=== PATIENT | female | born 1935 | race Caucasian/White ===

== ENCOUNTER 2023-02-11 20:07 | Emergency (ER) | payer OTHER, MEDICARE ==
[~2023-02-11] VITALS: Ht 160 cm; Wt 58.0 kg
--- OUTSIDE RECORDS SUMMARY | 2023-02-11 21:05 | XMS ---
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 Events currently on file CRITERIA MET - [facility] - 2 Visits in 30 Days - [facility] - 3 Facilities in 90 Days - [facility] CARE PROVIDERS KATARINA AVILA Plans Examiner: Foot \T\ Ankle Surgery Current PHONE: [phone] LIANA PEARL Internal Medicine Current PHONE: [phone] BHASKAR LIMON Nurse Practitioner: Family Current PHONE: [phone] PROMISE SMITH Internal Medicine: Cardiovascular Disease Current PHONE: [phone] ISH TINSLEY Nurse Practitioner: Family Current PHONE: Unknown RITU PEDRAZA Internal Medicine Current PHONE: [phone] TIMO AVILEZ Nurse Practitioner: Family Current PHONE: [phone] TALIA BAIRD Nurse Practitioner Kenneth SENAGH PHONE: [phone] CONRAD DOUGLAS Family Medicine Current PHONE: [phone] ANTHONY KUMAR Nurse Practitioner: Family Current PHONE: Unknown Eva has no Care Guidelines for this patient. Ravin VISIT COUNT (12 MO.) 1 Kamlesh Egan 2 [facility] 1 JOYCE Marie TOTAL 4 NOTE: Visits indicate total known visits. ED/UCC VISIT TRACKING (12 MO.) 02/11/2023 20:08 JOYCE Gill [place] TYPE: Emergency COMPLAINT: - FALL 02/03/2023 22:45 Kamlesh Chou OR TYPE: Emergency DIAGNOSES: - LV II TX Fall - TX 02/03/2023 15:00 [email or web address] [place] TYPE: Emergency DIAGNOSES: - Nondisplaced posterior arch fracture of first cervical vertebra, initial encounter for closed fracture - Other specified fracture of right pubis, initial encounter for closed fracture - Unspecified fracture of right acetabulum, initial encounter for closed fracture - GRN LVL FALL 04/24/2022 08:19 [email or web address] [place] TYPE: Emergency DIAGNOSES: - Drug induced constipation - CONSTIPATION AND VOMITING INPATIENT VISIT TRACKING (12 MO.) 02/03/2023 22:45 Kamlesh DURBIN TYPE: Trauma COMPLAINT: - LV II TX Fall DIAGNOSES: - LV II TX Fall [email or web address]
[2023-02-11] MEDS ORDERED: MACROBID 100 M100 MG PO (22:35)
[2023-02-11 23:48] VITALS: BP 141/90
== END 2023-02-12 00:07 | disposition home or self-care (01) ==
LOC: ED 20:07
DX: S01.81XA Laceration without foreign body of other part of head, initial encounter (principal); W06.XXXA Fall from bed, initial encounter; N39.0 Urinary tract infection, site not specified; Z20.822 Contact with and (suspected) exposure to COVID-19
CPT/HCPCS: 36415; 70450; 70486; 71260; 72125; 74177; 80053; 81001; 83605; 85025; 85610; 86850; 86900; 86901; 87502; A9270; C9803; G0480; J0696; J2270; J2405; J7121; Q9967; U0003

== ENCOUNTER 2023-02-22 21:03 | Emergency (ER) | payer OTHER, MEDICARE ==
[~2023-02-22] VITALS: Ht 160 cm; Wt 56.0 kg
[~2023-02-22 21:03] MED LIST: MACROBID 100 M100 MG PO
--- OUTSIDE RECORDS SUMMARY | 2023-02-22 21:06 | XMS ---
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 - 2 Visits in 30 Days - 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 \T\ Ankle Surgery Current PHONE: [phone] LIANA PEARL Internal Medicine Current PHONE: [phone] BHASKAR LIMON Nurse Practitioner: Family Current PHONE: [phone] PROMISE SMITH Internal Medicine: Cardiovascular Disease Current PHONE: [phone] ISH TINSLEY Nurse Practitioner: Family Current PHONE: Unknown RITU PEDRAZA Internal Medicine Current PHONE: [phone] TIMO AVILEZ Nurse Practitioner: Family Current PHONE: [phone] TALIA BAIRD Nurse Practitioner Kenneth SENAGH PHONE: [phone] CHANDRIKA [facility] Nursing [facility] Current PHONE: Unknown CONRAD DOUGLAS [facility] Current PHONE: [phone] ANTHONY KUMAR Nurse Practitioner: Family Current PHONE: Unknown Eva has no Care Guidelines for this patient. [place]avin VISIT COUNT (12 MO.) [address] [facility] 2 JOYCE Marie TOTAL 5 NOTE: Visits indicate total known visits. ED/UCC VISIT TRACKING (12 MO.) 02/22/2023 21:03 JOYCE Villatoro TYPE: Emergency COMPLAINT: - BLOOD PRESSURE PROBLEM 02/11/2023 20:08 JOYCE Villatoro TYPE: Emergency COMPLAINT: - FALL DIAGNOSES: - Contact with and (suspected) exposure to COVID-19 - Fall from bed, initial encounter - Laceration without foreign body of other part of head, initial encounter - Urinary tract infection, site not specified 02/03/2023 22:45 Kamlesh DURBIN TYPE: Emergency DIAGNOSES: - LV II TX Fall - TX 02/03/2023 15:00 [facility] [place] TYPE: Emergency DIAGNOSES: - Nondisplaced posterior arch fracture of first cervical vertebra, initial encounter for closed fracture - Other specified fracture of right pubis, initial encounter for closed fracture - Unspecified fracture of right acetabulum, initial encounter for closed fracture - GRN LVL FALL 04/24/2022 08:19 [facility] [place] TYPE: Emergency DIAGNOSES: - Drug induced constipation - CONSTIPATION AND VOMITING INPATIENT VISIT TRACKING (12 MO.) 02/03/2023 22:45 Kamlesh Chou OR TYPE: Trauma COMPLAINT: - LV II TX Fall DIAGNOSES: - LV II TX Fall [email or web address]
[2023-02-22] MEDS ORDERED: B-121000 MC2 PO (21:25)
[2023-02-22] MEDS ORDERED: LEVOTHYROXINE100 MC2 PO (21:25)
[2023-02-22] MEDS ORDERED: VITAMIN D350 MCG PO (21:25)
[2023-02-22] MEDS ORDERED: LEXAPRO10 MG PO (21:26)
[2023-02-22] MEDS ORDERED: MAGNESIUM400 MG PO (21:27)
[2023-02-22] MEDS ORDERED: ELIQUIS2.5 MG PO (21:27)
[2023-02-22] MEDS ORDERED: METOPROLOL TART50 MG PO (21:28)
[2023-02-22] MEDS ORDERED: SENOKOTXTRA17.2 MG PO (21:29)
[2023-02-22] MEDS ORDERED: ACETAMINOPHEN325 M1 PO (21:30)
[2023-02-23] MEDS ORDERED: BACTRIM DS TAB1 EACH PO (00:08)
[2023-02-23 00:41] VITALS: BP 101/47
--- NOTE | 2023-02-23 17:45 | EKG ---
[facility] [address] [place] [address] Signed Atrial fibrillation with premature ventricular or aberrantly conducted complexes Prolonged QT Abnormal ECG No previous ECGs available Confirmed by MIRIAM CA MD ([id number]) on 02/23/2023 5:45:07 PM Electronically Signed By: MIRIAM CA MD 02/23/23 1745 PATIENT NAME: REUBEN MARC Electrocardiogram DATE OF : 39 PHYSICIAN: MIRIAM CA MD REPORT #: [id number] REPORT IS CONFIDENTIAL AND NOT TO BE RELEASED WITHOUT AUTHORIZATION
== END 2023-02-23 00:50 | disposition home or self-care (01) ==
LOC: ED 21:03
DX: I10 Essential (primary) hypertension (principal); I16.0 Hypertensive urgency; N39.0 Urinary tract infection, site not specified; E03.9 Hypothyroidism, unspecified; M19.90 Unspecified osteoarthritis, unspecified site; I48.91 Unspecified atrial fibrillation; Z79.899 Other long term (current) drug therapy
CPT/HCPCS: 36415; 51701; 71045; 80053; 81001; 84484; 85025; 85610; 93005; 93010; 99284-25; A9270; J0360; J2060; J2405